=== PATIENT | male | born 1980 | race Caucasian/White ===

== ENCOUNTER 2024-01-16 14:00 | Inpatient (IN) | payer OTHER, SELFPAY ==
[2024-01-16 14:04] VITALS: BP 112/73; PULSE 102; RESP 16; TEMP 37.1; O2SAT 96
--- NOTE | 2024-01-16 14:24 | ED_ITS ---
HPI - Fever 2 General: Chief Complaint: Fever Stated Complaint: leg pain, fever Time Seen by Provider: 01/16/24 14:24 History of Present Illness: 43-year-old male presents emergency room complaining of leg pain and swelling in the lower extremities. He has a rash present with some redness with streaking proximally. He was seen for but weakness 2 weeks ago started on Bactrim which he completed 4 days ago despite this he still running a fever at home still has redness in his legs. No chest pain or shortness of breath he is appetite has been decreased and he has had some increase in fatigue. Patient is not diabetic. He states he rarely goes to see the doctor we have no old labs to compare to. Associated symptoms: Deny abdominal pain, chills, chest pain or dysuria Review of Systems 2 Const: Reports: fever(s), fatigue and malaise; Denies: chills Card: Reports: edema and swelling of feet/ankles; Denies: chest pain Resp: Denies: dyspnea GI: Denies: abdominal pain : Denies: dysuria, urinary frequency or urinary urgency Musc: Denies: neck pain or back pain Skin/Breast: Reports: rash, erythema, skin tenderness and skin swelling PFSH ED 2 PFSH: Social History (Updated 01/16/24 @ 17:02 by Johnathon Russell DO) Smoking and tobacco/nicotine status: unknown if used tobacco/nicotine Alcohol intake: never Physical Exam 2 Const: GENERAL APPEARANCE: cooperative and comfortable O RIENTATION/CONSCIOUSNESS: Yes awake, Yes oriented to person, Yes oriented to place and Yes oriented to time HENMT: COMMON NORMALS: normocephalic, atraumatic and hearing grossly normal bilaterally HEAD & SCALP: normocephalic and atraumatic Resp: COMMON NORMALS: normal respiratory effort, No retractions, No use of accessory muscles and clear to auscultation bilaterally AUSCULTATION: clear to auscultation bilaterally Cardio: COMMON NORMALS: regular rate, regular rhythm and No murmurs present (Cardio) RATE: regular rate RHYTHM: regular rhythm GI: COMMON NORMALS: Soft to palpation and No hepatosplenomegaly present A USCULTATION: Yes normoactive bowel sounds PALPATION: Yes Soft to palpation, No Tenderness to palpation present (GI), No Guarding due to palpation present (GI) and Yes No hepatosplenomegaly present Extremity: COMMON NORMALS: capillary refill normal, no clubbing, cyanosis or edema, no calf tenderness and no pedal edema OTHER: Erythematous petechial-like rash on the lower extremities mildly warm to the touch not indurated. Neuro: SENSORIUM/ORIENTATION: Yes oriented to person, Yes oriented to place and Yes oriented to time Skin: COMMON NORMALS: no rashes or lesions noted GENERAL SKIN EXAM: no rashes or lesions noted Course 2 Vital Signs: Vital signs: Vital Signs Temperature 98.8 F 01/16/24 14:04 Pulse Rate 97 01/16/24 15:32 Respiratory Rate 16 01/16/24 14:04 Blood Pressure 93/65 01/16/24 15:32 Pulse Oximetry 92 01/16/24 15:32 Oxygen Delivery Me thod Room Air 01/16/24 15:32 MDM - Fever Medical Decision Making Cellulitis, thrombocytopenia with petechial rash, hyponatremia, transaminitis. Cultures done. CRP elevated white counts normal. He is reporting fever at home he is mildly hypotensive will admit the patient. His potassium and creatinine were normal. We did give him a fluid bolus additionally started him on vancomycin discussed with Dr. Daniel. Medical Records I reviewed the patient's medical records. Lab Data I reviewed the patient's lab results. 01/16/24 14:36 01/16/24 14:36 Laboratory Results WBC 4.74 10^3/uL (3.29-11.43) 01/16/24 14:36 RBC 4.67 10^6/uL (3.85-5.65) 01/16/24 14:36 Hgb 13.00 g/dL (11.27-16.99) 01/16/24 14:36 Hct 38.4 % (37-53) 01/16/24 14:36 MCV 82.2 fl (82-101) 01/16/24 14:36 MCH 27.8 pg (27-33) 01/16/24 14:36 MCHC 33.9 g/dL (30-55) 01/16/24 14:36 RDW 13.2 % (12.1-15.1) 01/16/24 14:36 Plt Count 70 10^3/cmm (157-399) L 01/16/24 14:36 MPV 11.8 fL (7.4-10.4) H 01/16/24 14:36 Lymph % (Auto) Not Reportable 01/16/24 14:36 [place] % (Auto) Not Reportable 01/16/24 14:36 Lymph # (Auto) Not Reportable 01/16/24 14:36 [place] # (Auto) Not Reportable 01/16/24 14:36 Total Counted 100 (0-100) 01/16/24 14:36 Atypical Lymphs % 20.0 % (0-5) H 01/16/24 14:36 Absolute Neutrophils 2.6 10^3/cmm (1.4-6.5) 01/16/24 14:36 Segmented Neutrophils 53 % 01/16/24 14:36 Abs Segm Neuts (Man) 2.5 10/cmm (1.6-7.1) 01/16/24 14:36 Band Neutrophils 1.0 % 01/16/24 14:36 Abs Band Neuts (Man) 0.0 10^3/cmm (0.0-1.2) 01/16/24 14:36 Absolute Lymphocytes 2.0 10^3/cmm (1.2-3.4) 01/16/24 14:36 Lymphocytes (Manual) 23 % 01/16/24 14:36 Monocytes (Manual) 3.0 % 01/16/24 14:36 Absolute Monocytes 0.1 10^3/cmm (0.1-0.6) 01/16/24 14:36 Eosinophils (Manual) 0 % 01/16/24 14:36 Absolute Eosinophils 0.0 10^3/cmm (0.0-0.7) 01/16/24 14:36 Basophils (Manual) 0.0 % 01/16/24 14:36 Absolute Basophils 0.0 10^3/cmm (0.0-0.2) 01/16/24 14:36 Platelet Estimate Decreased (Normal) 01/16/24 14:36 Sodium 124 mmol/L (136-145) L 01/16/24 14:36 Potassium 3.6 mmol/L (3.5-5.1) 01/16/24 14:36 Chloride 88 mmol/L (98-107) L 01/16/24 14:36 Carbon Dioxide 23 mmol/L (22-29) 01/16/24 14:36 Anion Gap 16.6 (5-19) 01/16/24 14:36 BUN 16 mg/dL (6-20) 01/16/24 14:36 Creatinine 1.1 mg/dL (0.7-1.2) 01/16/24 14:36 GFR Calculation 73.1 mL/min (90-130) L 01/16/24 14:36 Glucose 100 mg/dL (65-115) 01/16/24 14:36 Calculated Osmolality 259 mOsm/kg (285-295) L 01/16/24 14:36 Lactic Acid 1.5 mmol/L (0.5-2.2) 01/16/24 14:36 Calcium 8.1 mg/dL (8.5-10.5) L 01/16/24 14:36 Total Bilirubin 1.0 mg/dL (0.15-1.2) 01/16/24 14:36 AST 87 U/L (0-40) H 01/16/24 14:36 ALT 85 U/L (0-41) H 01/16/24 14:36 Alkaline Phosphatase 48 U/L (40-130) 01/16/24 14:36 C-Reactive Protein 65.9 mg/L (0.0-4.9) H 01/16/24 15:23 Total Protein 5.9 g/dL (6.6-8.7) L 01/16/24 14:36 Albumin 3.4 g/dL (3.5-5.2) L 01/16/24 14:36 Globulin 2.5 g/dL (1.3-4.6) 01/16/24 14:36 Urine Color Dark yellow (Yellow) A 01/16/24 14:51 Urine Appearance Clear (CLEAR) 01/16/24 14:51 Urine pH 5 (5-7) 01/16/24 14:51 Ur Specific [place] 1.020 (1.005-1.030) 01/16/24 14:51 Urine Protein 1+ (Negative) H 01/16/24 14:51 Urine Glucose (UA) Norm (Normal) 01/16/24 14:51 Urine Ketones 1+ (Negative) H 01/16/24 14:51 Urine Blood Trace (Negative) H 01/16/24 14:51 Urine Nitrate Negative (Negative) 01/16/24 14:51 Urine Bilirubin 1+ (Negative) H 01/16/24 14:51 Urine Urobilinogen 4 mg/dL (Negative) H 01/16/24 14:51 Ur Leukocyte Esterase Negative (Negative) 01/16/24 14:51 Urine RBC 0-4 /hpf (0-2) H 01/16/24 14:51 Urine WBC 0-4 /hpf (0-5) H 01/16/24 14:51 Ur Squamous Epith Cells 0-4 /hpf (0-5) H 01/16/24 14:51 Amorphous Sediment Not Reportable 01/16/24 14:51 Urine Bacteria Trace /hpf (NONE) 01/16/24 14:51 Hyaline Casts 0-4 /lpf H 01/16/24 14:51 Urine Mucus 1+ /hpf 01/16/24 14:51 All radiology interpretation(s) finalized by discharge Discharge Plan Discharge Patient Disposition: Admitted As Inpatient Clinical Impression: Cellulitis, Thrombocytopenia, Hyponatremia, Transaminitis Condition: Stable Coding Level of Care Code ED Cell Attendant Helper for Branyd Fishman
[2024-01-16 14:56] LABS: Hematocrit 38.4 % (37-53); Mean Corpuscular HGB Conc 33.9 g/dL (30-55); Mean Corpuscular Hemoglobin 27.8 pg (27-33); Mean Corpuscular Volume 82.2 fl (82-101); Mean Platelet Volume 11.8 fL (7.4-10.4); Platelet Count 70 10^3/cmm (157-399); Red Blood Count 4.67 10^6/uL (3.85-5.65); Red Cell Distribution Width 13.2 % (12.1-15.1); White Blood Count 4.74 10^3/uL (3.29-11.43)
[2024-01-16 15:06] LABS: Add Urine Microscopic? YES; Bacteria Urine TRACE /hpf; Bilirubin Urine 1+ (Negative); Blood Urine Trace (Negative); Glucose Urine UA Norm (Normal); Ketones Urine 1+ (Negative); Leukocyte Esterase Urine Negative (Negative); Nitrate Urine Negative (Negative); Protein Urine 1+ (Negative); RBC Urine 0-4 /hpf (0-2); Squamous Epithelial Cell Urine 0-4 /hpf (0-5); Urine Appearance Clear (CLEAR); Urine Color Dark Yellow (Yellow); Urobilinogen Urine 4 mg/dL (Negative); WBC Urine 0-4 /hpf (0-5); pH Urine 5 (5-7)
[2024-01-16 15:07] LABS: Hyaline Casts Urine 0-4 /lpf; Mucus Urine 1+ /hpf
[2024-01-16 15:12] LABS: Lactic Sepsis W/Reflex 1.5 mmol/L (0.5-2.2)
[2024-01-16 15:13] LABS: Alanine Aminotransferase 85 U/L (0-41); Albumin Level 3.4 g/dL (3.5-5.2); Alkaline Phosphatase 48 U/L (40-130); Anion Gap 16.6 (5-19); Aspartate Amino Transferase 87 U/L (0-40); Blood Urea Nitrogen 16 mg/dL (6-20); Calcium 8.1 mg/dL (8.5-10.5); Carbon Dioxide 23 mmol/L (22-29); Chloride 88 mmol/L (98-107); Creatinine Clr Calc Pharmacy 125.3789; Globulin 2.5 g/dL (1.3-4.6); Glomerular Filtration Rate 73.1 mL/min (90-130); Glucose 100 mg/dL (65-115); Osmolality Calculated 259 mOsm/kg (285-295); Potassium 3.6 mmol/L (3.5-5.1); Sodium 124 mmol/L (136-145); Total Protein 5.9 g/dL (6.6-8.7)
[2024-01-16] MEDS: vancomycin 1,000 MG in sodium chloride 0.9% 250 ML 250 MG IV ×2 (15:31→20:03)
[2024-01-16 15:32] VITALS: BP 93/65; PULSE 97; O2SAT 92
[2024-01-16 15:43] LABS: Absolute Neutrophil 2.6 10^3/cmm (1.4-6.5); Absolute Segmented Neutrophil 2.5 10/cmm (1.6-7.1); Eosinophils 0 %; Lymphocytes 23 %; Monocytes Absolute 0.1 10^3/cmm (0.1-0.6); Platelet Estimate Decreased (Normal); Segmented Neutrophils 53 %; Slide Review Slide Review Perform; Total Cells Counted 100 (0-100)
--- NOTE | 2024-01-16 15:56 | USR_ITS ---
PROCEDURE INFORMATION: Exam: US Duplex Lower Extremity Veins, Bilateral Exam date and time: 01/16/2024 4:50 PM Age: 43 years old Clinical indication: Pain; Leg, lower; Bilateral; Additional info: Pain/swelling TECHNIQUE: Imaging protocol: Real-time duplex ultrasound of the bilateral extremities with 2-D joya scale, color Doppler flow and spectral waveform analysis including responses to compression and other maneuvers (when performed) with image documentation. Complete exam focused on the lower extremity veins. COMPARISON: No relevant prior studies available. FINDINGS: Right deep veins: Unremarkable. The common femoral, femoral, proximal profunda femoral and popliteal veins and visualized peroneal and posterior tibial veins are patent without thrombus. Normal Doppler waveforms. Normal compressibility and/or augmentation response. Left deep veins: Unremarkable. The common femoral, femoral, proximal profunda femoral and popliteal veins and visualized peroneal and posterior tibial veins are patent without thrombus. Normal Doppler waveforms. Normal compressibility and/or augmentation response. Superficial veins: Greater saphenous veins at the saphenofemoral junctions are patent bilaterally without thrombus. Soft tissues: Unremarkable. US/CV venous duplex [facility] [id number] IMPRESSION: No evidence of deep vein thrombosis in the examined venous segments of the bilateral lower extremities.
[2024-01-16 16:18] LABS: C Reactive Protein 65.9 mg/L (0.0-4.9)
[2024-01-16 17:04] VITALS: BP 113/67; PULSE 92; O2SAT 97
--- NOTE | 2024-01-16 17:31 | P.HP_ITS ---
Providers/Chief Complaint 2 Admitting Physician: Monique Daniel MD Primary Care Provider: Leena Hooper NP Chief Complaint: leg pain, fever History of Present Illness Netta Dougherty is a 43 year old male without known medical comorbidties who is presenting with B/L LE rash. Rash first started around December 29 after patient had walked through some grass. He Noticed the next day that B/L pre tibial region started devloping a rash medially which progressed to involve B/L feet, circumferentially both tibia and ascending up towards the knees. He visited with PCP around January 04 and was prescribed Bactrim for cellulitis. B/L LE swelling improved since starting bactrim however the rash remained. ROS + intermittent fever, chills and sweating since onset of rash. Headche + intermittently. No photophobia or neck stiffness. Patient has cats and chicken in the home- no recent animal bite or scratches. Works from home typically. H/o camping in backyard 2 weeks ago. 2 kids- 5 and 7 years old- who have not been sick recenly. No viral exanthem. Nausea+. No diarrhea, chest or abdominal pain, no cough or URI symptoms. No recent h/o travel Review of Systems 2 General: Reports: 10 or more systems reviewed and unremarkable except in HPI and below Const: Denies: fever(s), chills or body aches Eyes: Denies: change in vision, blurry vision or photophobia ENMT: Reports: hoarseness; Denies: throat pain, enlarged tonsils, odynophagia or nasal congestion Card: Denies: chest pain, palpitations, irregular heart rhythm, edema, swelling of feet/ankles, lightheadedness, pre-syncope, dyspnea on exertion or orthopnea Resp: Denies: dyspnea, productive cough, non-productive cough, wheezing, stridor, pain on inspiration, change in phlegm color, hemoptysis or chest congestion GI: Denies: abdominal pain, nausea, vomiting, hematemesis, coffee ground emesis, dysphagia, heartburn, diarrhea, constipation, GI cramping, change in stool character, hematochezia or melena : Denies: flank pain, dysuria, urinary frequency, urinary urgency, urinary hesitancy or hematuria Musc: Denies: neck pain, back pain, extremity pain, joint swelling, joint warmth or deformity Neuro: Denies: headache(s), numbness in extremities, weakness in extremities, sensory changes, difficulty walking, frequent falls, dizziness, vertigo, behavioral changes, Slurred speech present or seizure-like activity Psych: Denies: anxiety, depression, suicidal ideation or homicidal ideation Endo: Denies: polyuria, polydipsia, tired all the time, cold intolerance or hot flashes [place]/Lymph: Denies: easy bruising or easy bleeding Medications/Allergies Home Medications Medication Instructions Recorded Confirmed Last Taken Type sulfamethoxazole 800 1 tab PO BID 7 days #14 tabs 01/05/24 01/16/24 01/11/24 Rx mg-trimethoprim 160 mg tablet (Bactrim DS) Allergies Allergy/AdvReac Type Severity Reaction Status Date / Time No Known Allergies Allergy Unverified 01/16/24 14:10 PFSH Acute 2 PFSH: Social History Smoking and tobacco/nicotine status: unknown if used tobacco/nicotine Alcohol intake: never Vitals/I&O/Wt Last Vital Signs Temp 98.8 F 01/16/24 14:04 Pulse 97 01/16/24 15:32 Resp 92 H 01/16/24 17:04 BP 113/67 01/16/24 17:04 Pulse Ox 97 01/16/24 17:04 O2 Del Method Room Air 01/16/24 15:32 01/16/24 01/16/24 01/16/24 06:59 14:59 22:59 Intake Total 250 / 250 Balance 250 / 250 Weight last 48 hrs Weight 136.078 kg Physical Exam 2 Narrative: General: No acute distress, AO x3 HEENT: PERRLA, pupils bilaterally equal and reactive, pallors not present Chest: Normal vesicular breath sounds, no added sounds, equal good air entry bilaterally CVS: S1-S2 regular, no murmurs, no tachycardia, no gallops, no rubs Abdomen: Soft, nontender, no organomegaly, bowel sounds present Neuro: No focal deficits, no facial deformity, AO x3, power 5/5 in all limbs Extremities: B/L LE petechial to macular rash over lower extremities. Rash appears symmetric, extending to knees. Faint rash extension into B/L lower thighs additionally. Data 01/16/24 14:36 01/16/24 14:36 Micro: Microbiology 01/16/24 15:23 Blood Culture - Preliminary Blood SPECIMEN COLLECTED 01/16/24 14:36 Blood Culture - Preliminary Blood SPECIMEN COLLECTED A&P Assessment and plan (1) Cellulitis: (2) Thrombocytopenia: (3) Hyponatremia: (4) Transaminitis: Plan 43M without past comorbidities who presented to the hospital with B/L LE rash progressing since 12/30/23. Recently treated with bactrim as outpatient for cellulitis on 01/04 Changes appear to be progressive in spite of bactrim treatment GIven B/L Symmetric rash , thrombocytopenia, transaminitis , suspect tick borne illness to be the cause. Check Tick panel, tularemia IgG/IgM, ehrlichia and anaplasma DNA PCR Start doxycycline 100mg BID presumptively Possibility of cellulitis not entirely excluded' may be streptococcal etiology; however would be odd presentation given protracted course and symmetric rash Start Cefepime and vancomycin empirically while undergoing evaluation He has failed outpatient abx therapy, has had progressive symptoms, with high risk features such as development of thrombocytopenia and hyponatremia Thrombocytopenia and hyponatremia may alternately be related to bactrim use, no eosinophils on diff to suggest DRESS syndrome Alternate differentials include acute viral exanthem - check Resp viral panel, hepatitis panel, HIV screen, RPR, monoscreen. Liver US given transaminitis NS @ 75cc/ hr Dvt ppx: SCDs, no a/c given thrombocytopenia Full code Attestations 2 Medical Necessity Statement*: > 2 midnight admission anticipated Coding Level of Care Code Acute Code for Chg Fwd High MDM includes number and complexity of problems actively addressed during encounter, amount and/or complexity of data reviewed/ordered and described risk of complication, morbidity or mortality of management as documented Diagnoses Cellulitis L03.90 Thrombocytopenia D69.6 Hyponatremia E87.1 Transaminitis R74.01
[2024-01-16 17:32] VITALS: BP 113/67; PULSE 92; O2SAT 97
[2024-01-16 17:44] VITALS: BMI 39.1
[2024-01-16] MEDS: cefepime 2,000 MG in sodium chloride 0.9% (plus) 50 ML 100 MG IV (18:47)
[2024-01-16] MEDS: sodium chloride 0.9% 1,000 ML 100 ML IV (18:47)
[2024-01-16] MEDS: doxycycline 100 mg Tablet PO (18:48)
[2024-01-16 20:00] VITALS: BP 93/53; PULSE 97; RESP 17; TEMP 37.3; O2SAT 92
[2024-01-16 20:28] LABS: Estmated Average Glucose 117; Hemoglobin A1C 5.7 % (4.0-6.0)
[2024-01-16 22:00] VITALS: PULSE 89
[2024-01-17] VITALS (10 sets, daily range): BP systolic 92–124; BP diastolic 56–74; PULSE 73–103; RESP 16–18; TEMP 36.4–38; O2SAT 94–98
[2024-01-17 01:00] LABS: Adenovirus Not Detected (NOT DETECT); Chlamydia Pneumoniae Not Detected (NOT DETECT); Coronavirus 229E,HKU1,NL63,OC4 Not Detected (NOT DETECT); Human Metapneumovirus Not Detected (NOT DETECT); Human Rhinovirus/Enterovirus Not Detected (NOT DETECT); Influenza A Not Detected (NOT DETECT); Influenza A H1 Not Detected (NOT DETECT); Influenza A H1-2009 Not Detected (NOT DETECT); Influenza A H3 Not Detected (NOT DETECT); Influenza B Not Detected (NOT DETECT); Mycoplasma Pneumoniae Not Detected (NOT DETECT); Parainfluenza Virus Type 1 Not Detected (NOT DETECT); Parainfluenza Virus Type 2 Not Detected (NOT DETECT); Parainfluenza Virus Type 3 Not Detected (NOT DETECT); Parainfluenza Virus Type 4 Not Detected (NOT DETECT); Respiratory Syncytial Virus A Not Detected (NOT DETECT); Respiratory Syncytial Virus B Not Detected (NOT DETECT); SARS-COV-2 Not Detected (NOT DETECT)
[2024-01-17 01:01] LABS: Potassium, Radom Urine 28 mmol/L; Urine Random Chloride 38 mmol/L
[2024-01-17 01:08] LABS: Urine Random Sodium 15 mmol/L
[2024-01-17 03:45] LABS: Basophils % 0.3 %; Hematocrit 32.6 % (37-53); Lymphocytes % 54.4 %; Mean Corpuscular HGB Conc 34.4 g/dL (30-55); Mean Corpuscular Hemoglobin 28.2 pg (27-33); Mean Corpuscular Volume 82.1 fl (82-101); Mean Platelet Volume 12.2 fL (7.4-10.4); Monocytes # 0.4 10^3/uL (0.2-0.9); Neutrophils # 1.23 10^3/uL (1.8-7.7); Neutrophils % 33.8 %; Nucleated Red Blood Cells % 0 %; Platelet Count 68 10^3/cmm (157-399); Red Blood Count 3.97 10^6/uL (3.85-5.65); Red Cell Distribution Width 13.2 % (12.1-15.1); White Blood Count 3.64 10^3/uL (3.29-11.43)
[2024-01-17] MEDS: vancomycin 2,000 MG/400 ML PIGGYBACK 200 MG IV ×2 (03:58→16:01)
[2024-01-17] MEDS: sodium chloride 0.9% 1,000 ML 100 ML IV (03:59)
[2024-01-17 04:04] LABS: Monoscreen Negative (Negative)
[2024-01-17 04:10] LABS: HIV 1 & 2 Antibody Non-Reactive (Non-Reactiv); HIV 1 & 2 Antigen Non-Reactive (Non-Reactiv)
[2024-01-17 04:11] LABS: Creatine Phosphokinase 238 U/L (39-308)
[2024-01-17 04:17] LABS: Alanine Aminotransferase 78 U/L (0-41); Alkaline Phosphatase 41 U/L (40-130); Anion Gap 13.4 (5-19); Aspartate Amino Transferase 81 U/L (0-40); Blood Urea Nitrogen 13 mg/dL (6-20); Calcium 7.6 mg/dL (8.5-10.5); Carbon Dioxide 27 mmol/L (22-29); Chloride 91 mmol/L (98-107); Creatinine Clr Calc Pharmacy 152.3445; Globulin 2.1 g/dL (1.3-4.6); Glomerular Filtration Rate 92.1 mL/min (90-130); Glucose 96 mg/dL (65-115); Osmolality Calculated 266 mOsm/kg (285-295); Potassium 3.4 mmol/L (3.5-5.1); Sodium 128 mmol/L (136-145); Total Bilirubin 0.7 mg/dL (0.15-1.2); Total Protein 5.1 g/dL (6.6-8.7)
[2024-01-17 04:22] LABS: Hepatitis A Antibody IgM Non-Reactive (Nonreactive); Hepatitis B Core AB, Total Non-Reactive (Nonreactive); Hepatitis B Surface AB 9.4 (11.5-1000); Hepatitis B Surface Antigen Non-Reactive (Nonreactive); Hepatitis C Virus Antibody Non-Reactive (Nonreactive)
[2024-01-17] MEDS: acetaminophen 325 mg Tablet 650 MG PO (04:23)
[2024-01-17] MEDS: cefepime 2,000 MG in sodium chloride 0.9% (plus) 50 ML 100 MG IV ×2 (05:25→06:09)
[2024-01-17 05:29] LABS: Glucose Point of Care 104 mg/dL (70-110)
--- NOTE | 2024-01-17 06:00 | USR_ITS ---
PROCEDURE INFORMATION: Exam: US Duplex Artery or Vein of the Abdominal and/or Reproductive Organs, Limited Liver Exam date and time: 01/17/2024 6:49 AM Age: 43 years old Clinical indication: Condition or disease; Other: Transaminitis; Additional info: Transaminitis, assess for hepatitis vs cirrhosis TECHNIQUE: Imaging protocol: Real-time duplex ultrasound scan of the arterial or venous flow with color Doppler flow and spectral waveform analysis with image documentation. Limited Duplex exam focused on the liver and portal venous system. Duplex exam was performed to evaluate for vascular conditions. COMPARISON: [place] [id number] 01/16/2024 4:50 PM FINDINGS: Portal venous: The portal vein is patent with hepatopetal flow. Spectral waveform demonstrates normal respiratory phasicity. PROCEDURE INFORMATION: Exam: US Abdomen, Limited; Right Upper Quadrant Exam date and time: 01/17/2024 6:49 AM Age: 43 years old Clinical indication: Condition or disease; Other: Transaminitis; Additional info: Transaminitis, assess for hepatitis vs cirrhosis TECHNIQUE: Imaging protocol: Real time ultrasound of the abdomen with image documentation. Limited exam focused on the right upper quadrant. COMPARISON: No relevant prior studies available. FINDINGS: Liver: Diffuse hepatic steatosis. Gallbladder: Gallbladder wall measures 2 mm. Intraluminal sludge noted. No gallstones. Biliary ducts: Common bile duct measures 5 mm. Pancreas: Visualized pancreas is unremarkable. Right kidney: Right kidney measures 12.0 cm. No hydronephrosis. US/US liver [id number] IMPRESSION: Unremarkable duplex of the portal vein. IMPRESSION: Diffuse hepatic steatosis. No acute findings.
[2024-01-17] MEDS: pantoprazole DR 40 mg Tablet PO (08:23)
[2024-01-17] MEDS: doxycycline 100 mg Tablet PO ×2 (08:23→17:06)
[2024-01-17] MEDS: sodium chlor 0.9% + KCl 20 mEq 20 MEQ/1,000 ML BAG 75 MEQ IV (10:04)
--- NOTE | 2024-01-17 15:42 | P.PN_ITS ---
Subjective 2 Subjective: Tmax 100.4 overnight. No new complaints. Sodium at 128. Lower extremity rash appears to be unchanged overall. Pictures are attached today. Comparative pictures from time of rash onset in December. Both legs are included. Medications: Reviewed: Yes Vitals/I&O/Wt Last Vital Signs Temp 97.5 F L 01/17/24 11:46 Pulse 81 01/17/24 14:00 Resp 17 01/17/24 11:46 BP 99/62 01/17/24 11:46 Pulse Ox 95 01/17/24 11:46 O2 Del Method Room Air 01/17/24 11:46 01/17/24 01/17/24 01/17/24 06:59 14:59 22:59 Intake Total 1336.667 / 4283.667 1609.583 / 1609.583 Balance 1336.667 / 4283.667 1609.583 / 1609.583 Weight last 48 hrs Weight 136.078 kg Weight 134.581 kg Weight 136.078 kg Physical Exam 2 Narrative: General: No acute distress, AO x3 HEENT: PERRLA, pupils bilaterally equal and reactive, pallors not present Chest: Normal vesicular breath sounds, no added sounds, equal good air entry bilaterally CVS: S1-S2 regular, no murmurs, no tachycardia, no gallops, no rubs Abdomen: Soft, nontender, no organomegaly, bowel sounds present Neuro: No focal deficits, no facial deformity, AO x3, power 5/5 in all limbs Extremities: B/L LE petechial to macular rash over lower extremities. Rash appears symmetric, extending to knees. Faint rash extension into B/L lower thighs additionally. Data 01/17/24 02:10 01/17/24 02:10 Other Labs: 01/16december 29 , from 's cellphone right leg december 29, left eg Micro: Microbiology 01/16/24 15:23 Blood Culture - Preliminary Blood NEGATIVE TO DATE 01/16/24 14:36 Blood Culture - Preliminary Blood NEGATIVE TO DATE A&P Assessment and plan (1) Cellulitis: (2) Thrombocytopenia: (3) Hyponatremia: (4) Transaminitis: Plan 43M without past comorbidities who presented to the hospital with B/L LE rash progressing since 12/30/23. Recently treated with bactrim as outpatient for cellulitis on 01/04 Changes appear to be progressive in spite of bactrim treatment GIven B/L Symmetric rash , thrombocytopenia, transaminitis , suspect tick borne illness to be the cause. Check Tick panel, tularemia IgG/IgM, ehrlichia and anaplasma DNA PCR Start doxycycline 100mg BID presumptively Possibility of cellulitis not entirely excluded' may be streptococcal etiology; however would be odd presentation given protracted course and symmetric rash Start Cefepime and vancomycin empirically while undergoing evaluation He has failed outpatient abx therapy, has had progressive symptoms, with high risk features such as development of thrombocytopenia and hyponatremia Thrombocytopenia and hyponatremia may alternately be related to bactrim use, no eosinophils on diff to suggest DRESS syndrome Alternate differentials include acute viral exanthem - check Resp viral panel, hepatitis panel, HIV screen, RPR, monoscreen. Liver US given transaminitis NS @ 75cc/ hr Dvt ppx: SCDs, no a/c given thrombocytopenia Full code January 17, 2024 Rash overall appears to be unchanged. Tmax of 100.4 Fahrenheit overnight. Platelet count at 68,000 today. Ultrasound of the liver showing hepatic steatosis. Normal HbA1c. Negative hepatitis screen for acute hep B hep C hep B. Monoscreen negative. Negative HIV 1 and 2 antigen antibody screen. Negative respiratory viral panel. Pending tick panel, tularemia serology, Ehrlichia PCR, Anaplasma PCR. Venous duplex negative for DVT. Atypical lymphocytes noted on automated differential from 01/16/2024, no abnormal blast. Suspect these may be related to acute viral versus tach mediated illness. Ordered for peripheral smear to be reviewed by pathologist. CBC with manual differential with a.m. labs. Blood cultures so far negative to date. Continue IV cefepime, IV vancomycin and oral doxycycline. Attestations 2 Medical Necessity Statement*: Continued need for IV antibiotics, clinical improvement, persisting thrombocytopenia. Coding Level of Care Code Acute Code for Chg Fwd High MDM includes number and complexity of problems actively addressed during encounter, amount and/or complexity of data reviewed/ordered and described risk of complication, morbidity or mortality of management as documented Diagnoses Cellulitis L03.90 Thrombocytopenia D69.6 Hyponatremia E87.1 Transaminitis R74.01
[2024-01-17] MEDS: sodium chloride 1 gm Tablet PO (17:06)
[2024-01-17 17:07] LABS: Hematocrit 35.5 % (37-53); Mean Corpuscular HGB Conc 31.5 g/dL (30-55); Mean Corpuscular Volume 88.8 fl (82-101); Mean Platelet Volume 11.8 fL (7.4-10.4); Platelet Count 74 10^3/cmm (157-399); Red Cell Distribution Width 13.5 % (12.1-15.1); White Blood Count 4.77 10^3/uL (3.29-11.43)
[2024-01-17 17:43] LABS: Absolute Segmented Neutrophil 1.6 10/cmm (1.6-7.1); Band Neutrophils Absolute 0.2 10^3/cmm (0.0-1.2); Eosinophils 0 %; Lymphocytes 50 %; Lymphocytes Absolute 2.8 10^3/cmm (1.2-3.4); Monocytes Absolute 0.2 10^3/cmm (0.1-0.6); Segmented Neutrophils 33 %; Total Cells Counted 100 (0-100)
[2024-01-17 17:44] LABS: Absolute Neutrophil 1.8 10^3/cmm (1.4-6.5); Anisocytosis 1+; LAB Peripheral Smear Sent for Review; Platelet Estimate Decreased (Normal)
[2024-01-18 04:15] LABS: Hematocrit 36.5 % (37-53); Mean Corpuscular HGB Conc 33.2 g/dL (30-55); Mean Corpuscular Hemoglobin 27.7 pg (27-33); Mean Corpuscular Volume 83.5 fl (82-101); Mean Platelet Volume 11.9 fL (7.4-10.4); Platelet Count 91 10^3/cmm (157-399); Red Blood Count 4.37 10^6/uL (3.85-5.65); Red Cell Distribution Width 13.6 % (12.1-15.1); White Blood Count 4.56 10^3/uL (3.29-11.43)
[2024-01-18 04:34] LABS: Vancomycin Trough 12.4 ug/mL (10-15)
[2024-01-18 04:36] LABS: Albumin Level 3.1 g/dL (3.5-5.2); Alkaline Phosphatase 48 U/L (40-130); Blood Urea Nitrogen 10 mg/dL (6-20); Calcium 7.7 mg/dL (8.5-10.5); Carbon Dioxide 26 mmol/L (22-29); Chloride 98 mmol/L (98-107); Chol HDL Ratio 8.33 mg/dL (1.0-5.00); Cholesterol 75 mg/dL (0-200); Creatinine Clr Calc Pharmacy 229.8613; Globulin 1.9 g/dL (1.3-4.6); Glucose 98 mg/dL (65-115); HDL Cholesterol 9 mg/dL (60-100); LDL Cholesterol Calculated 15 mg/dL (50-129); LDL HDL Ratio 1.67 RATIO (0.00-3.22); Osmolality Calculated 275 mOsm/kg (285-295); Sodium 133 mmol/L (136-145); Total Bilirubin 0.5 mg/dL (0.15-1.2); Triglycerides 253 mg/dL (0-150)
[2024-01-18] MEDS: vancomycin 2,000 MG/400 ML PIGGYBACK 200 MG IV (04:40)
[2024-01-18 04:45] VITALS: BP 121/76; PULSE 73; RESP 16; TEMP 37.1; O2SAT 96
[2024-01-18 04:47] LABS: Total Cells Counted 100 (0-100)
[2024-01-18 04:49] LABS: Absolute Neutrophil 1.3 10^3/cmm (1.4-6.5); Absolute Segmented Neutrophil 1.2 10/cmm (1.6-7.1); Band Neutrophils Absolute 0.1 10^3/cmm (0.0-1.2); Eosinophils 0 %; Lymphocytes 65 %; Monocytes Absolute 0.3 10^3/cmm (0.1-0.6); Platelet Estimate Decreased (Normal); Segmented Neutrophils 26 %
[2024-01-18 04:55] LABS: Alanine Aminotransferase 83 U/L (0-41); Anion Gap 13.6 (5-19); Aspartate Amino Transferase 71 U/L (0-40); Potassium 3.6 mmol/L (3.5-5.1)
[2024-01-18 05:10] VITALS: PULSE 70
[2024-01-18] MEDS: cefepime 2,000 MG in sodium chloride 0.9% (plus) 50 ML 100 MG IV (06:42)
[2024-01-18 07:34] VITALS: BP 120/74; PULSE 75; RESP 15; TEMP 36.4; O2SAT 96
[2024-01-18] MEDS: pantoprazole DR 40 mg Tablet PO (09:38)
[2024-01-18] MEDS: sodium chloride 1 gm Tablet PO (09:38)
[2024-01-18] MEDS: doxycycline 100 mg Tablet PO (09:38)
[2024-01-18 11:14] LABS: Thyroid Stimulating Hormone 3.09 uIU/mL (0.27-4.20)
[2024-01-18 11:35] VITALS: BP 117/77; PULSE 78; RESP 16; TEMP 36.4; O2SAT 96
--- NOTE | 2024-01-18 15:27 | P.DS_ITS ---
Discharge Providers 2 Date of Admission: 01/16/24 17:06 Date of Discharge: January 18, 2024 Attending Provider at Admission: Monique Daniel MD Attending Provider at Discharge: Monique Daniel MD Primary Care Provider: Leena Hooper NP Diagnoses at Discharge Discharge Diagnosis (1) Cellulitis: Status: Acute (2) Thrombocytopenia: Status: Acute (3) Hyponatremia: Status: Acute (4) Transaminitis: Status: Acute (5) At high risk for tick borne illness: Status: Acute (6) Generalized rash: Status: Acute (7) Fever: Status: Acute Reason for Visit 2 Reason for Visit: leg pain, fever Hospital Course Hospital Course Netta Dougherty is a 43 year old male without known medical comorbidties who presented to the hospital with bilateral lower extremity rash and fever that had been ongoing for about 3 weeks. Patient was diagnosed with bilateral lower extremity cellulitis recently at urgent care and was prescribed Bactrim. Patient states that the swelling in his extremities improved after starting the Bactrim, however the redness did not dissipate. Upon evaluation he had a macular rash to bilateral lower extremities affecting his bilateral feet, bilateral calfs, bilateral anterior tibial region, anteriorly over the knee and extending up to the level of mid thigh. Lab abnormalities including thrombocytopenia with a platelet count of low at 68,000 during hospital stay. This has improved to 91,000 upon discharge. Patient also had transaminitis with elevation of both AST and ALT. Ultrasound of the liver showed hepatic steatosis. Other significant lab abnormalities included a CBC showing mild neutropenia , 20% atypical lymphocytes on admission at January 15, improving to 9% and then 0 on most recent check on January 18, 2024. Peripheral smear from blood was ordered to identify any potential blast cells for further assessment, this remains pending at the time of discharge. Patient also had hyponatremia with sodium of 124 at the time of admission, corrected to 133 at the time of discharge. Overall clinical impression was that of a tickborne illness, suspected ehrlichiosis versus [place] spotted fever as a cause of his rash fever and other abnormalities noted on his blood test. Patient started presumptive treatment with doxycycline 100 mg p.o. twice daily. Alternate possibilities for lab abnormalities include Bactrim induced thrombocytopenia and hyponatremia, however would expect pancytopenia rather than pure thrombocytopenia if related to Bactrim use. There were no signs of dress syndrome. Tick panel is currently pending at the time of discharge. For possibility of cellulitis (since patient reported reported some partial improvement on Bactrim), he was continued on antibiotic coverage for the same with Augmentin. He did receive his cefepime and vancomycin during his hospital stay. Patient has now been afebrile for over 24 hours at the time of discharge. Overall clinical impression favoring tach mediated illness versus viral exanthem. Other negative workup during admission included negative HIV screen negative respiratory viral panel, negative monoscreen. Pending tests include tick panel including Rickettsia, Ehrlichia, Lyme serologies, tularemia serology, Ehrlichia and Anaplasma DNA PCR, PRIYANKA panel, blood cultures which are currently negative to date. Hyponatremia improved with IV normal saline and orals NaCl supplementation. Incidentally also noted to have low HDL at 9 and low LDL at 15. Normal TSH. HbA1c 5.7. ?? Familial dyslipidemia as because of the extremely low HDL and LDL?? Defer to primary care physician for further evaluation. Patient is being discharged today in improved condition after being afebrile over 24 hours, improving platelet count. Stable transaminitis, improved hyponatremia. Instructed to continue doxycycline 100 mg p.o. twice daily for the next 10 days. Will follow-up is pending blood test and call when available. Instructed to return to the hospital on January 20, 2024 to check CBC and CMP to ensure that lab abnormalities are continuing to improve. Rash is improving on discharge. Patient does not currently have a primary care physician, referral will be provided to [facility]. Physical Exam 2 Narrative: General: No acute distress, AO x3 HEENT: PERRLA, pupils bilaterally equal and reactive, pallors not present Chest: Normal vesicular breath sounds, no added sounds, equal good air entry bilaterally CVS: S1-S2 regular, no murmurs, no tachycardia, no gallops, no rubs Abdomen: Soft, nontender, no organomegaly, bowel sounds present Neuro: No focal deficits, no facial deformity, AO x3, power 5/5 in all limbs Discharge Data Studies Completed and Pending Completed Studies During Hospitalization Category [place] [address] Routine Ultrasound 01/17/24 06:00 Completed US venous duplex lower extremity bilat [CV venous Ultrasound 01/16/24 15:56 [place] [id number]] Stat Pending at discharge Category Date Time Status PRIYANKA Profile Rheumatology AM LABS Lab 01/18/24 03:39 Received Blood Culture Stat Lab 01/16/24 15:23 Results Ehrlichia Ch[place]ensis PCR AM LABS Lab 01/17/24 02:10 Received Francisella tularensis IgM/IgG AM [facility]S Lab 01/17/24 02:10 Received MRSA [Methicillin Resistant S.aureu] Routine Lab 01/16/24 21:21 Received Miscellaneous Test AM LABS Lab 01/17/24 02:10 Received RPR with Reflex to Titer AM [facility] Lab 01/17/24 02:10 Received Tick Panel Routine Lab 01/16/24 17:41 Received Radiology Impressions Venous Duplex 01/16/24 15:56 IMPRESSION: No evidence of deep vein thrombosis in the examined venous segments of the bilateral lower extremities. Liver Ultrasound 01/17/24 06:00 IMPRESSION: Unremarkable duplex of the portal vein. IMPRESSION: Diffuse hepatic steatosis. No acute findings. Laboratory Results WBC 4.56 10^3/uL (3.29-11.43) 01/18/24 03:39 RBC 4.37 10^6/uL (3.85-5.65) 01/18/24 03:39 Hgb 12.10 g/dL (11.27-16.99) 01/18/24 03:39 Hct 36.5 % (37-53) L 01/18/24 03:39 MCV 83.5 fl (82-101) D 01/18/24 03:39 MCH 27.7 pg (27-33) 01/18/24 03:39 MCHC 33.2 g/dL (30-55) D 01/18/24 03:39 RDW 13.6 % (12.1-15.1) 01/18/24 03:39 Plt Count 91 10^3/cmm (157-399) L 01/18/24 03:39 MPV 11.9 fL (7.4-10.4) H 01/18/24 03:39 Neut % (Auto) 33.8 % 01/17/24 02:10 Lymph % (Auto) 54.4 % 01/17/24 02:10 [place] % (Auto) 11.0 % 01/17/24 02:10 Eos % (Auto) 0.0 % 01/17/24 02:10 Baso % (Auto) 0.3 % 01/17/24 02:10 Neut # (Auto) 1.23 10^3/uL (1.8-7.7) L 01/17/24 02:10 Lymph # (Auto) 2.0 10^3/uL (0.8-4.8) 01/17/24 02:10 [place] # (Auto) 0.4 10^3/uL (0.2-0.9) 01/17/24 02:10 Eos # (Auto) 0.0 10^3/uL (0.0-0.8) 01/17/24 02:10 Baso # (Auto) 0.0 10^3/uL (0.0-0.1) 01/17/24 02:10 Nucleated RBC % (auto) 0 % 01/17/24 02:10 Total Counted 100 (0-100) 01/18/24 03:39 Atypical Lymphs % 0.0 % (0-5) 01/18/24 03:39 Absolute Neutrophils 1.3 10^3/cmm (1.4-6.5) L 01/18/24 03:39 Segmented Neutrophils 26 % 01/18/24 03:39 Abs Segm Neuts (Man) 1.2 10/cmm (1.6-7.1) L 01/18/24 03:39 Band Neutrophils 2.0 % 01/18/24 03:39 Abs Band Neuts (Man) 0.1 10^3/cmm (0.0-1.2) 01/18/24 03:39 Absolute Lymphocytes 3.0 10^3/cmm (1.2-3.4) 01/18/24 03:39 Lymphocytes (Manual) 65 % 01/18/24 03:39 Monocytes (Manual) 7.0 % 01/18/24 03:39 Absolute Monocytes 0.3 10^3/cmm (0.1-0.6) 01/18/24 03:39 Eosinophils (Manual) 0 % 01/18/24 03:39 Absolute Eosinophils 0.0 10^3/cmm (0.0-0.7) 01/18/24 03:39 Basophils (Manual) 0.0 % 01/18/24 03:39 Absolute Basophils 0.0 10^3/cmm (0.0-0.2) 01/18/24 03:39 Nucleated RBCs # 0.0 /100WBC 01/17/24 02:10 Platelet Estimate Decreased (Normal) 01/18/24 03:39 Anisocytosis 1+ H 01/17/24 17:00 Peripher Smr Path Cons Sent for review 01/17/24 17:00 Sodium 133 mmol/L (136-145) L 01/18/24 03:39 Potassium 3.6 mmol/L (3.5-5.1) 01/18/24 03:39 Chloride 98 mmol/L (98-107) 01/18/24 03:39 Carbon Dioxide 26 mmol/L (22-29) 01/18/24 03:39 Anion Gap 13.6 (5-19) 01/18/24 03:39 BUN 10 mg/dL (6-20) 01/18/24 03:39 Creatinine 0.6 mg/dL (0.7-1.2) L 01/18/24 03:39 GFR Calculation 147.0 mL/min (90-130) H 01/18/24 03:39 Glucose 98 mg/dL (65-115) 01/18/24 03:39 POC Glucose 104 mg/dL (70-110) 01/17/24 05:27 Estimat Average Glucose 117 01/16/24 14:36 Hemoglobin A1c 5.7 % (4.0-6.0) 01/16/24 14:36 Calculated Osmolality 275 mOsm/kg (285-295) L 01/18/24 03:39 Lactic Acid 1.5 mmol/L (0.5-2.2) 01/16/24 14:36 Calcium 7.7 mg/dL (8.5-10.5) L 01/18/24 03:39 Total Bilirubin 0.5 mg/dL (0.15-1.2) 01/18/24 03:39 AST 71 U/L (0-40) H 01/18/24 03:39 ALT 83 U/L (0-41) H 01/18/24 03:39 Alkaline Phosphatase 48 U/L (40-130) 01/18/24 03:39 Creatine Kinase 238 U/L (39-308) 01/17/24 02:10 C-Reactive Protein 65.9 mg/L (0.0-4.9) H 01/16/24 15:23 Total Protein 5.0 g/dL (6.6-8.7) L 01/18/24 03:39 Albumin 3.1 g/dL (3.5-5.2) L 01/18/24 03:39 Globulin 1.9 g/dL (1.3-4.6) 01/18/24 03:39 Triglycerides 253 mg/dL (0-150) H 01/18/24 03:39 Cholesterol 75 mg/dL (0-200) 01/18/24 03:39 LDL Cholesterol, Calc 15 mg/dL (50-129) L 01/18/24 03:39 HDL Cholesterol 9 mg/dL (60-100) L 01/18/24 03:39 LDL/HDL Ratio 1.67 RATIO (0.00-3.22) 01/18/24 03:39 Cholesterol/HDL Ratio 8.33 mg/dL (1.0-5.00) H 01/18/24 03:39 TSH 3.09 uIU/mL (0.27-4.20) 01/18/24 03:39 Urine Color Dark yellow (Yellow) A 01/16/24 14:51 Urine Appearance Clear (CLEAR) 01/16/24 14:51 Urine pH 5 (5-7) 01/16/24 14:51 Ur Specific [place] 1.020 (1.005-1.030) 01/16/24 14:51 Urine Protein 1+ (Negative) H 01/16/24 14:51 Urine Glucose (UA) Norm (Normal) 01/16/24 14:51 Urine Ketones 1+ (Negative) H 01/16/24 14:51 Urine Blood Trace (Negative) H 01/16/24 14:51 Urine Nitrate Negative (Negative) 01/16/24 14:51 Urine Bilirubin 1+ (Negative) H 01/16/24 14:51 Urine Urobilinogen 4 mg/dL (Negative) H 01/16/24 14:51 Ur Leukocyte Esterase Negative (Negative) 01/16/24 14:51 Urine RBC 0-4 /hpf (0-2) H 01/16/24 14:51 Urine WBC 0-4 /hpf (0-5) H 01/16/24 14:51 Ur Squamous Epith Cells 0-4 /hpf (0-5) H 01/16/24 14:51 Amorphous Sediment Not Reportable 01/16/24 14:51 Urine Bacteria Trace /hpf (NONE) 01/16/24 14:51 Hyaline Casts 0-4 /lpf H 01/16/24 14:51 Urine Mucus 1+ /hpf 01/16/24 14:51 Ur Random Sodium 15 mmol/L 01/17/24 00:31 Ur Random Potassium 28 mmol/L 01/17/24 00:31 Ur Random Chloride 38 mmol/L 01/17/24 00:31 Vancomycin Trough 12.4 ug/mL (10-15) 01/18/24 03:39 Adenovirus (PCR) Not detected (NOT DETECT) 01/15/24 23:00 C. pneumoniae DNA (PCR) Not detected (NOT DETECT) 01/15/24 23:00 Coronavirus 229E (PCR) Not detected (NOT DETECT) 01/15/24 23:00 Hepatitis A IgM Ab Non-reactive (Nonreactive) 01/17/24 02:10 Hep Bs Antigen Non-reactive (Nonreactive) 01/17/24 02:10 Hep Bs Antibody 9.4 (11.5-1000) L 01/17/24 02:10 Hep B Core Total Ab Non-reactive (Nonreactive) 01/17/24 02:10 Hepatitis C Antibody Non-reactive (Nonreactive) 01/17/24 02:10 Monoscreen Negative (Negative) 01/17/24 02:10 HIV 1&2 Ab & HIV 1 Ag Non-reactive (Non-Reactiv) 01/17/24 02:10 HIV 1&2 Antibody Non-reactive (Non-Reactiv) 01/17/24 02:10 Human Metapneumovir PCR Not detected (NOT DETECT) 01/15/24 23:00 Influenza A (H1) PCR Not detected (NOT DETECT) 01/15/24 23:00 Influ A (H1/09) PCR Not detected (NOT DETECT) 01/15/24 23:00 Influenza A (H3) PCR Not detected (NOT DETECT) 01/15/24 23:00 Influenza Type A (PCR) Not detected (NOT DETECT) 01/15/24 23:00 Influenza Type B (PCR) Not detected (NOT DETECT) 01/15/24 23:00 M. pneumoniae (PCR) Not detected (NOT DETECT) 01/15/24 23:00 Parainfluenza 1 (PCR) Not detected (NOT DETECT) 01/15/24 23:00 Parainfluenza 2 (PCR) Not detected (NOT DETECT) 01/15/24 23:00 Parainfluenza 3 (PCR) Not detected (NOT DETECT) 01/15/24 23:00 Parainfluenza 4 (PCR) Not detected (NOT DETECT) 01/15/24 23:00 RSV Type A (PCR) Not detected (NOT DETECT) 01/15/24 23:00 RSV Type B (PCR) Not detected (NOT DETECT) 01/15/24 23:00 Entero/Rhino (PCR) Not detected (NOT DETECT) 01/15/24 23:00 SARS-CoV-2 (PCR) Not detected (NOT DETECT) 01/15/24 23:00 Vitals Last Vital Signs Temp 97.6 F 01/18/24 11:35 Pulse 78 01/18/24 11:35 Resp 16 01/18/24 11:35 BP 117/77 01/18/24 11:35 Pulse Ox 96 01/18/24 11:35 O2 Del Method Room Air 01/17/24 16:00 Discharge Plan Discharge Patient Disposition: Home Condition: Stable Prescriptions: New doxycycline monohydrate 100 mg Tablet 100 mg PO BID 10 Days Qty: 20 0RF acetaminophen 325 mg Tablet 650 mg PO Q6H PRN (Reason: Mild/Mod Pain Or Temp >/= 101) Qty: 0 0RF amoxicillin-pot clavulanate 875-125 mg tablet 1 tab PO BID 3 Days Qty: 6 0RF pantoprazole 40 mg Tablet,Delayed Release (Dr/Ec) 40 mg PO DAILY 15 Days Qty: 15 0RF Discontinued sulfamethoxazole-trimethoprim [Bactrim DS] 800-160 mg tablet 1 tab PO BID 7 Days Qty: 14 0RF Patient Comments: pt no longer taking Discharge Orders: Discharge Order (Routine); Ordered 01/18/24 Ordered By: Monique Daniel Other Ambulatory Orders: Complete Blood Count w/Man Dif (Routine) Timeframe: 20240120 Facility: [facility] - Location: Lab - Main Lab Ordered By: Monique Daniel Comprehensive Metabolic Panel (Routine) Timeframe: 20240120 Facility: [facility] - Location: Lab - Main Lab Ordered By: Monique Daniel Referrals: Leena Hooper NP [Primary Care Provider] - Orlando Harper MD [Physician] - 2 weeks Discharge Diet: Usual diet Discharge Activity: Resume usual activity Patient Instructions: Doxycycline (By mouth), Amoxicillin/Clavulanate Potassium (By mouth), Opioid Safety Discharge Attestations 2 Time Spent in Discharge Care*: greater than 30 min Quality Metrics Clinical Quality Measures [ No reported AMI, CVA or VTE this stay] Coding Level of Care Code Acute Code for Chg Fwd Diagnoses Cellulitis L03.90 Thrombocytopenia D69.6 Hyponatremia E87.1 Transaminitis R74.01 At high risk for tick borne illness Z91.89 Generalized rash R21 Fever R50.9
[2024-01-18 16:57] VITALS: BP 117/77; PULSE 78; RESP 16; TEMP 36.4; O2SAT 96
[2024-01-19 11:40] LABS: COMPLEMENT COMPONENT C3C 116 mg/dL (82-185); COMPLEMENT COMPONENT C4C 17 mg/dL (15-53)
[2024-01-19 13:26] LABS: COMPLEMENT, TOTAL (CH50) 47 U/mL (31-60)
[2024-01-19 15:30] LABS: ANA SCREEN, IFA NEGATIVE (NEGATIVE)
[2024-01-19 16:59] LABS: Methicillin-Resist S.aureu PCR NOT DETECTED (NOT DETECTED)
[2024-01-20 12:09] LABS: Lyme AB Screen <0.90 index
[2024-01-20 14:22] LABS: RPR w(Moniotor) w/REFL Titer NON-REACTIVE (NON-REACTIVE)
[2024-01-20 18:56] LABS: CENTROMERE B ANTIBODY <1.0 NEG AI (<1.0 NEG); JO-1 ANTIBODY <1.0 NEG AI (<1.0 NEG); RNP ANTIBODY <1.0 NEG AI (<1.0 NEG); SCL-70 ANTIBODY <1.0 NEG AI (<1.0 NEG); SJOGREN'S ANTIBODY (SS-A) <1.0 NEG AI (<1.0 NEG); SM ANTIBODY <1.0 NEG AI (<1.0 NEG); SS-B <1.0 NEG AI (<1.0 NEG)
[2024-01-21 08:10] LABS: THYROID PEROXIDASE ANTIBODIES 1 IU/mL (<9)
[2024-01-22 17:04] LABS: RMSF IGG NOT DETECTED; RMSF IGM NOT DETECTED
== END 2024-01-18 16:40 | disposition home or self-care (01) | DRG 603 ==
LOC: ER 17:03 → MEDSURG 17:07
PROVIDERS: Admitting Provider Student in an Organized Health Care Education/Training Program; Emergency Provider Family Medicine; Visit Provider Student in an Organized Health Care Education/Training Program
DX: L03.116 Cellulitis of left lower limb (principal); E87.1 Hypo-osmolality and hyponatremia; L03.115 Cellulitis of right lower limb; D69.6 Thrombocytopenia, unspecified; R21 Rash and other nonspecific skin eruption; K76.0 Fatty (change of) liver, not elsewhere classified
CPT/HCPCS: 36415; 36416; 76705; 80053; 80061; 80202; 80503; 81001; 82436; 82550; 82962; 83036; 83605; 84133; 84300; 84443; 85007; 85025; 85027; 86140; 86160; 86162; 86235; 86255; 86308; 86376; 86592; 86618; 86666; 86668; 86705; 86706; 86709; 86757; 86803; 87040; 87340; 87486; 87581; 87633; 87641; 87798; 87806; 93970; 96365; 99285; J0692; J3370; J3372; J3480; J7030; J7050

== ENCOUNTER 2024-01-20 12:37 | Outpatient (CLI) | payer OTHER, SELFPAY ==
[2024-01-20 13:02] LABS: Hematocrit 37.1 % (37-53); Mean Corpuscular HGB Conc 33.2 g/dL (30-55); Mean Corpuscular Hemoglobin 28.1 pg (27-33); Mean Corpuscular Volume 84.9 fl (82-101); Mean Platelet Volume 10.1 fL (7.4-10.4); Platelet Count 181 10^3/cmm (157-399); Red Blood Count 4.37 10^6/uL (3.85-5.65); Red Cell Distribution Width 13.7 % (12.1-15.1)
[2024-01-20 13:21] LABS: Alanine Aminotransferase 277 U/L (0-41); Albumin Level 3.7 g/dL (3.5-5.2); Alkaline Phosphatase 61 U/L (40-130); Anion Gap 13.1 (5-19); Aspartate Amino Transferase 237 U/L (0-40); Blood Urea Nitrogen 13 mg/dL (6-20); Calcium 8.5 mg/dL (8.5-10.5); Carbon Dioxide 29 mmol/L (22-29); Chloride 103 mmol/L (98-107); Glucose 97 mg/dL (65-115); Osmolality Calculated 292 mOsm/kg (285-295); Potassium 4.1 mmol/L (3.5-5.1); Sodium 141 mmol/L (136-145); Total Bilirubin 0.5 mg/dL (0.15-1.2); Total Protein 5.7 g/dL (6.6-8.7)
[2024-01-20 14:16] LABS: Absolute Segmented Neutrophil 1.4 10/cmm (1.6-7.1); Band Neutrophils Absolute 0.1 10^3/cmm (0.0-1.2); Lymphocytes 27 %; Segmented Neutrophils 20 %; Total Cells Counted 100 (0-100)
[2024-01-20 14:17] LABS: Absolute Eosinophils 0.4 10^3/cmm (0.0-0.7); Absolute Neutrophil 1.5 10^3/cmm (1.4-6.5); Eosinophils 6 %; Monocytes Absolute 0.1 10^3/cmm (0.1-0.6); Platelet Estimate Normal (Normal)
== END 2024-01-20 12:38 | disposition home or self-care (01) ==
LOC: LAB 12:38
PROVIDERS: Visit Provider Student in an Organized Health Care Education/Training Program
DX: D69.6 Thrombocytopenia, unspecified (principal); R74.01 Elevation of levels of liver transaminase levels; E87.1 Hypo-osmolality and hyponatremia
CPT/HCPCS: 36415; 80053; 85007; 85027

== ENCOUNTER 2024-02-04 13:20 | Outpatient (CLI) | payer OTHER, SELFPAY ==
[2024-02-04 13:43] LABS: Basophils # 0.1 10^3/uL (0.0-0.1); Basophils % 1.2 %; Eosinophils # 0.2 10^3/uL (0.0-0.8); Eosinophils % 2.6 %; Hematocrit 42.1 % (37-53); Lymphocytes % 52.2 %; Mean Corpuscular HGB Conc 33.3 g/dL (30-55); Mean Corpuscular Hemoglobin 28.6 pg (27-33); Mean Corpuscular Volume 85.9 fl (82-101); Mean Platelet Volume 9.3 fL (7.4-10.4); Monocytes # 0.6 10^3/uL (0.2-0.9); Monocytes % 11.1 %; Neutrophils # 1.89 10^3/uL (1.8-7.7); Neutrophils % 32.6 %; Nucleated Red Blood Cells % 0 %; Platelet Count 147 10^3/cmm (157-399); Red Cell Distribution Width 14.6 % (12.1-15.1); White Blood Count 5.79 10^3/uL (3.29-11.43)
[2024-02-04 14:02] LABS: Alanine Aminotransferase 35 U/L (0-41); Albumin Level 4.4 g/dL (3.5-5.2); Alkaline Phosphatase 69 U/L (40-130); Blood Urea Nitrogen 17 mg/dL (6-20); Calcium 9.2 mg/dL (8.5-10.5); Carbon Dioxide 29 mmol/L (22-29); Chloride 101 mmol/L (98-107); Globulin 2.2 g/dL (1.3-4.6); Glomerular Filtration Rate 123.1 mL/min (90-130); Glucose 91 mg/dL (65-115); Osmolality Calculated 289 mOsm/kg (285-295); Sodium 139 mmol/L (136-145); Total Bilirubin 0.6 mg/dL (0.15-1.2); Total Protein 6.6 g/dL (6.6-8.7)
[2024-02-04 14:25] LABS: Anion Gap 13.3 (5-19); Aspartate Amino Transferase 25 U/L (0-40); Potassium 4.3 mmol/L (3.5-5.1)
== END 2024-02-04 13:21 | disposition home or self-care (01) ==
LOC: LAB 13:22
PROVIDERS: Visit Provider Pediatrics
DX: I77.1 Stricture of artery (principal); E87.1 Hypo-osmolality and hyponatremia
CPT/HCPCS: 36415; 80053; 85025

== ENCOUNTER 2024-02-10 13:06 | Outpatient (CLI) | payer OTHER, SELFPAY ==
[2024-02-10 13:21] LABS: Basophils # 0.1 10^3/uL (0.0-0.1); Basophils % 0.8 %; Eosinophils # 0.2 10^3/uL (0.0-0.8); Eosinophils % 3.5 %; Hematocrit 42.5 % (37-53); Lymphocytes % 48.1 %; Mean Corpuscular HGB Conc 33.2 g/dL (30-55); Mean Corpuscular Volume 84.3 fl (82-101); Mean Platelet Volume 9.4 fL (7.4-10.4); Monocytes # 0.5 10^3/uL (0.2-0.9); Monocytes % 8.4 %; Neutrophils # 2.37 10^3/uL (1.8-7.7); Neutrophils % 38.2 %; Nucleated Red Blood Cells % 0 %; Platelet Count 185 10^3/cmm (157-399); Red Blood Count 5.04 10^6/uL (3.85-5.65); Red Cell Distribution Width 14.3 % (12.1-15.1)
[2024-02-10 13:37] LABS: Alanine Aminotransferase 23 U/L (0-41); Albumin Level 4.5 g/dL (3.5-5.2); Alkaline Phosphatase 78 U/L (40-130); Anion Gap 15.4 (5-19); Aspartate Amino Transferase 17 U/L (0-40); Blood Urea Nitrogen 20 mg/dL (6-20); Calcium 9.3 mg/dL (8.5-10.5); Carbon Dioxide 26 mmol/L (22-29); Chloride 104 mmol/L (98-107); Globulin 2.1 g/dL (1.3-4.6); Glomerular Filtration Rate 105.5 mL/min (90-130); Glucose 113 mg/dL (65-115); Osmolality Calculated 295 mOsm/kg (285-295); Potassium 4.4 mmol/L (3.5-5.1); Sodium 141 mmol/L (136-145); Total Bilirubin 0.4 mg/dL (0.15-1.2); Total Protein 6.6 g/dL (6.6-8.7)
[2024-02-10 14:38] LABS: Absolute Eosinophils 0.2 10^3/cmm (0.0-0.7); Absolute Segmented Neutrophil 2.3 10/cmm (1.6-7.1); Eosinophils 3 %; Lymphocytes 42 %; Lymphocytes Absolute 3.3 10^3/cmm (1.2-3.4); Monocytes Absolute 0.4 10^3/cmm (0.1-0.6); Platelet Estimate Normal (Normal); Segmented Neutrophils 37 %; Total Cells Counted 100 (0-100)
== END 2024-02-10 13:07 | disposition home or self-care (01) ==
LOC: LAB 13:07
PROVIDERS: Visit Provider Student in an Organized Health Care Education/Training Program
DX: A77.41 Ehrlichiosis chaffeensis [E. chaffeensis] (principal); D72.820 Lymphocytosis (symptomatic)
CPT/HCPCS: 36415; 80053; 85007; 85025

== ENCOUNTER → 2024-03-25 14:21 | Outpatient (BNVA) | payer OTHER, SELFPAY | DX: I77.1 Stricture of artery (principal); E78.89 Other lipoprotein metabolism disorders | CPT/HCPCS: 80053; 80061; 85025 ==

== ENCOUNTER → 2024-06-05 15:59 | Outpatient (BNVA) | payer OTHER, SELFPAY | PROVIDERS: Visit Provider Emergency Medicine | DX: J02.9 Acute pharyngitis, unspecified (principal); J18.9 Pneumonia, unspecified organism | CPT/HCPCS: 87071; 87880 ==

== ENCOUNTER → 2025-04-07 16:05 | Outpatient (BNVA) | payer OTHER, SELFPAY | DX: R53.83 Other fatigue (principal) | CPT/HCPCS: 80053; 82306; 82607; 84403; 84443; 85025; 85651; 86140 ==

== ENCOUNTER → 2025-04-21 08:16 | Outpatient (BNVA) | payer OTHER, SELFPAY | PROVIDERS: PCP Family Medicine; Visit Provider Family Medicine | DX: Z12.5 Encounter for screening for malignant neoplasm of prostate (principal); R79.89 Other specified abnormal findings of blood chemistry | CPT/HCPCS: 84403; G0103 ==